=== PATIENT | male | born 1950 | race Caucasian/White ===

== ENCOUNTER 2021-02-09 15:15 | Emergency (ER) | payer OTHER, MEDICAID ==
[~2021-02-09] VITALS: Ht 165.1 cm; Wt 63.5 kg
--- NOTE | 2021-02-09 15:15 | NUR ---
Pt bib [employer] for medical clearance for OK to book. V/S stable, no complaints at this time. No acute distress noted
--- NOTE | 2021-02-09 15:15 | NUR ---
Patient to ER bed hallway to gown for evaluation. Side rails up.
--- NOTE | 2021-02-09 15:20 | NUR ---
ER Dr. Coyne at bedside examining patient.
--- NOTE | 2021-02-09 15:40 | NUR ---
Patient given written and verbal discharge instructions and verbalizes understanding. ER MD discussed with patient the results and treatment provided. Patient in stable condition. ID arm band removed. No prescriptions given. Patient educated on pain management and to follow up with PMD. Pain Scale 0. Opportunity for questions provided and answered. Medication side effect fact sheet provided.
[2021-02-09 15:42] VITALS: BP_SYST 128
[2021-02-09 15:48] VITALS: BP_SYST 128
== END 2021-02-09 15:40 ==
LOC: SED 15:15
DX: Z02.89 Encounter for other administrative examinations (principal); I10 Essential (primary) hypertension; E11.9 Type 2 diabetes mellitus without complications; E78.00 Pure hypercholesterolemia, unspecified
CPT/HCPCS: 82962; 99283